=== PATIENT | male | born 1980 | race African-American/Black ===

== ENCOUNTER 2017-12-04 14:53 | Observation (INO) | payer SELFPAY ==
[~2017-12-04] VITALS: Ht 175.3 cm; Wt 93.0 kg
[~2017-12-04 14:53] MED LIST: CYCL-36 PO; IBUP800T23 PO; MEDR4PAK3 PO
[2017-12-04 15:11] VITALS: BP 150/97; PULSE 120; RESP 18; TEMP 97.9; O2SAT 98
[2017-12-04] MEDS ORDERED: SODIUM CHLOR 0.9% 1000 ML INJ 1,000 ML IV SCH (15:22)
--- NOTE | 2017-12-04 15:28 | PD ---
HPI Chief Complaint: GI Complaint Time Seen by Provider: 15:22 Travel History International Travel<30 days: No Contact w/Intl Traveler<30days: No Traveled to known affect area: No History of Present Illness HPI 37-year-old male presents for evaluation of rectal pain, chills and sweats, generalized weakness and constipation. Symptoms started 1.5 weeks ago. He assumed that he must have hemorrhoids. He has never had this problem before. He reports constipation secondary to rectal pain. He tried using Ex-Lax with no symptom improvement. He reports associated generalized fatigue as well as chills, sweats, particularly at night. Denies any nausea or vomiting. Denies any testicular scrotal pain. He has no other complaints at this time. [facility] Social History Alcohol Use: No Tobacco Use: Yes (2 CIGARS/DAY) Substance Use: No Allergies-Medications (Allergen,Severity, Reaction): Coded Allergies: No Known Allergies (Verified Allergy, Unknown, 12/04/17) Reported Meds & Prescriptions Reported Meds & Active Scripts Active No Active Prescriptions or Reported Medications Review of Systems Except as stated in HPI: all other systems reviewed are Neg Physical Exam Narrative GENERAL: Well-developed well-nourished male no acute distress. He is tachycardic in triage. SKIN: Warm and dry. HEAD: Atraumatic. Normocephalic. EYES: Pupils equal and round. No scleral icterus. No injection or drainage. ENT: No nasal bleeding or discharge. Mucous membranes pink and moist. NECK: Trachea midline. No JVD. CARDIOVASCULAR: Regular rate and rhythm. No murmur appreciated. RESPIRATORY: No accessory muscle use. Clear to auscultation. Breath sounds equal bilaterally. GASTROINTESTINAL: Abdomen soft, mild suprapubic tenderness. Rectal examination is significantly painful for the patient. There is no obvious external hemorrhoid or external palpable abscess. Brown stool noted. examination reveals descended testicles, nontender, nontender scrotum. No urethral discharge. MUSCULOSKELETAL: No obvious deformities. No clubbing. No cyanosis. No edema. NEUROLOGICAL: Awake and alert. No obvious cranial nerve deficits. Motor grossly within normal limits. Normal speech. Data Data Last Documented VS Vital Signs Date Time Temp Pulse Resp B/P (MAP) Pulse Ox O2 Delivery O2 Flow Rate FiO2 12/04/17 21:05 99.2 12/04/17 19:20 101 18 100 Room Air Orders Orders Complete Blood Count With Diff (12/04/17 15:22) Comprehensive Metabolic Panel (12/04/17:22) Lipase (12/04/17:) Urinalysis - C+S If Indicated (12/04/17:) Iv Access Insert/Monitor (12/04/17 15:22) Morphine Inj (Morphine Inj) (12/04/17 15:30) Ondansetron Inj (Zofran Inj) (12/04/17 15:30) Sodium Chlor 0.9% 1000 Ml Inj (Ns 1000 M (12/04/17 15:22) Ct Abd/Pel W Iv Contrast(Rout) (12/04/17:23) Fleets Enema PRN (12/04/17:23) Morphine Inj (Morphine Inj) (12/04/17 18:00) Iohexol 350 Inj (Omnipaque 350 Inj) (12/04/17 18:25) Ciprofloxacin 400 Mg Premix (Cipro 400 M (12/04/17 19:15) Metronidazole 500 Mg Inj (Flagyl 500 Mg (12/04/17 19:15) Acetaminophen 1000 Mg/100 Ml (Ofirmev 10 (12/04/17 20:00) Morphine Inj (Morphine Inj) (12/04/17 20:00) Consent (12/04/17 20:43) Admit Order (Ed Use Only) (12/04/17 22:55) Vital Signs (Adult) Q4H (12/04/17 22:55) Diet Npo (12/05/17 Breakfast) Activity Oob With Assistance (12/04/17 22:55) Notify Dr: Other (12/04/17 22:55) Labs Laboratory Tests Test 12/04/17 15:35 12/04/17 18:15 White Blood Count 9.2 TH/MM3 Red Blood Count 5.30 MIL/MM3 Hemoglobin 15.3 GM/DL Hematocrit 45.5 % Mean Corpuscular Volume 85.7 FL Mean Corpuscular Hemoglobin 28.9 PG Mean Corpuscular Hemoglobin Concent 33.8 % Red Cell Distribution Width 14.0 % Platelet Count 302 TH/MM3 Mean Platelet Volume 7.9 FL Neutrophils (%) (Auto) 71.3 % Lymphocytes (%) (Auto) 11.8 % Monocytes (%) (Auto) 16.4 % Eosinophils (%) (Auto) 0.1 % Basophils (%) (Auto) 0.4 % Neutrophils # (Auto) 6.6 TH/MM3 Lymphocytes # (Auto) 1.1 TH/MM3 Monocytes # (Auto) 1.5 TH/MM3 Eosinophils # (Auto) 0.0 TH/MM3 Basophils # (Auto) 0.0 TH/MM3 CBC Comment DIFF FINAL Differential Comment Blood Urea Nitrogen 11 MG/DL Creatinine 1.01 MG/DL Random Glucose 122 MG/DL Total Protein 8.1 GM/DL Albumin 3.5 GM/DL Calcium Level 9.6 MG/DL Alkaline Phosphatase 85 U/L Aspartate Amino Transf (AST/SGOT) 15 U/L Alanine Aminotransferase (ALT/SGPT) 17 U/L Total Bilirubin 0.4 MG/DL Sodium Level 141 MEQ/L Potassium Level 3.9 MEQ/L Chloride Level 105 MEQ/L Carbon Dioxide Level 27.7 MEQ/L Anion Gap 8 MEQ/L Estimat Glomerular Filtration Rate 100 ML/MIN Lipase 113 U/L Urine Color YELLOW Urine Turbidity CLEAR Urine pH 6.0 Urine Specific [place] 1.025 Urine Protein TRACE mg/dL Urine Glucose (UA) NEG mg/dL Urine Ketones NEG mg/dL Urine Occult Blood TRACE Urine Nitrite NEG Urine Bilirubin NEG Urine Urobilinogen 4.0 MG/DL Urine Leukocyte Esterase NEG Urine RBC 7 /hpf Urine WBC 1 /hpf Urine Squamous Epithelial Cells 1 /hpf Urine Mucus MANY /lpf Microscopic Urinalysis Comment CULT NOT INDICATED MDM Medical Decision Making Medical Screen Exam Complete: Yes Emergency Medical Condition: Yes Medical Record Reviewed: Yes Differential Diagnosis Anal fissure, constipation, rectal abscess, prostatitis Narrative Course Plan is for lab work, urinalysis, CT abdomen and pelvis with IV and rectal contrast. He will be given IV fluids, morphine and Zofran. 1754: Patient was reevaluated, still pain, additional morphine is been ordered. CBC is unremarkable. CMP is unremarkable. Urinalysis and CT abdomen and pelvis are pending. The patient is being signed out to the oncoming provider pending these results. Scripts No Active Prescriptions or Reported Meds Chandra Hsu December 04, 2017 15:28
[2017-12-04] MEDS ORDERED: ONDANSETRON HCL 4 MG/2 ML VIAL IVP ONE (15:30)
[2017-12-04] MEDS ORDERED: MORPHINE SULFATE 4 MG/ML INJ IV PUSH ONE ×3 (15:30→20:00)
[2017-12-04 15:48] LABS: AUTOMATED NEUTROPHIL # 6.6 TH/MM3 (1.8-7.7); BASOPHIL % 0.4 % (0.0-2.0); EOSINOPHIL % 0.1 % (0.0-4.0); HEMATOCRIT 45.5 % (39.0-51.0); HEMOGLOBIN 15.3 GM/DL (13.0-17.0); LYMPH % 11.8 % (9.0-44.0); LYMPHOCYTE # 1.1 TH/MM3 (1.0-4.8); MEAN CELL VOLUME 85.7 FL (80.0-100.0); MEAN CORPUSCULAR HEMOGLOBIN 28.9 PG (27.0-34.0); MEAN CORPUSCULAR HGB CONC 33.8 % (32.0-36.0); MEAN PLATELET VOLUME 7.9 FL (7.0-11.0); MONO % 16.4 % (0.0-8.0); MONOCYTE # 1.5 TH/MM3 (0-0.9); NEUT % 71.3 % (16.0-70.0); PLATELET COUNT 302 TH/MM3 (150-450); WHITE BLOOD COUNT 9.2 TH/MM3 (4.0-11.0)
[2017-12-04 16:13] LABS: ALBUMIN 3.5 GM/DL (3.4-5.0); ALKALINE PHOSPHATASE 85 U/L (45-117); ALT (GPT) 17 U/L (12-78); AST (GOT) 15 U/L (15-37); BICARBONATE 27.7 MEQ/L (21.0-32.0); BLOOD UREA NITROGEN 11 MG/DL (7-18); CALCIUM 9.6 MG/DL (8.5-10.1); CHLORIDE 105 MEQ/L (98-107); CREATININE 1.01 MG/DL (0.60-1.30); GLOMERULAR FILTRATION RATE 100 ML/MIN (>89); GLUCOSE,RANDOM 122 MG/DL (74-106); SODIUM (NA) 141 MEQ/L (136-145); TOTAL BILIRUBIN ADULT 0.4 MG/DL (0.2-1.0); TOTAL PROTEIN 8.1 GM/DL (6.4-8.2)
[2017-12-04] MEDS ORDERED: IOHEXOL 350 MG/ML 10 ML VIAL (for RAD DIAG) IVCONTRAST ONE (18:25)
[2017-12-04 18:30] LABS: BILIRUBIN, URINE NEG (NEG); BLOOD, URINE TRACE (NEG); GLUCOSE,URINE NEG (NEG); KETONE, URINE NEG (NEG); MUCUS URINE MANY /lpf (OCC); NITRITE,URINE NEG (NEG); SQUAMOUS EPITHELIAL CELL URINE 1 /hpf (0-5); URINE COLOR YELLOW (YELLW/STRAW); URINE LEUKOCYTE ESTERASE NEG (NEG)
--- NOTE | 2017-12-04 19:05 | RADRPT ---
EXAM DATE/TIME: 12/04/2017 18:24 [place] COMPARISON: No previous studies available for comparison. INDICATIONS : Constipation for two weeks. IV CONTRAST: 92 cc Omnipaque 350 (iohexol) IV ORAL CONTRAST: No oral contrast ingested. RADIATION DOSE: 11.70 CTDIvol (mGy) MEDICAL HISTORY : Hypertension. SURGICAL HISTORY : None. ENCOUNTER: Initial ACUITY: 3 weeks PAIN SCALE: 5/10 LOCATION: Bilateral abdomen TECHNIQUE: Volumetric scanning of the abdomen and pelvis was performed. Using automated exposure control and ad justment of the mA and/or kV according to patient size, radiation dose was kept as low as reasonably achievable to obtain optimal diagnostic quality images. DICOM format image data is available electro nically for review and comparison. FINDINGS: LOWER LUNGS: The visualized lower lungs are clear. LIVER: Homogeneous density without lesion. There is no dilation of the biliary tree. No calcified gallston es. SPLEEN: Normal size without lesion. PANCREAS: Within normal limits. KIDNEYS: Normal in size and shape. There is no mass, stone or hydronephrosis. ADRENAL GLANDS: Within normal limits. VASCULAR: There is no aortic aneurysm. BOWEL/MESENTERY: 3.8 x 2.0 cm peripherally enhancing fluid collection me perianal region posteriorly and to the left o f midline. Scattered colonic diverticula. No evidence of acute diverticulitis. No bowel dilatation. A ppendix within normal limits. No free air or free fluid. ABDOMINAL WALL: Within normal limits. RETROPERITONEUM: There is no lymphadenopathy. BLADDER: No wall thickening or mass. REPRODUCTIVE: Prostate calcifications. INGUINAL: There is no lymphadenopathy or hernia. MUSCULOSKELETAL: Within normal limits for patient age. CONCLUSION: 1. 3.8 cm perianal abscess. 2. No evidence of bowel obstruction. Medhat Borjas MD on December 04, 2017 at 18:58 Board Certified Radiologist. This report was verified electronically.
--- NOTE | 2017-12-04 19:14 | PD ---
Physical Exam Date Seen by Provider: December 04, 2017 Time Seen by Provider: 19:12 Narrative For full H&P please see previous providers note. Patient was signed out to me at change his shift. At that time a CT scan of the abdomen and pelvis with IV contrast was pending. Data Data Last Documented VS Vital Signs Date Time Temp Pulse Resp B/P (MAP) Pulse Ox O2 Delivery O2 Flow Rate FiO2 12/04/17 21:05 99.2 12/04/17 19:20 101 18 100 Room Air Orders Orders Complete Blood Count With Diff (12/04/17 15:22) Comprehensive Metabolic Panel (12/04/17:22) Lipase (12/04/17:22) Urinalysis - C+S If Indicated (12/04/17:) Iv Access Insert/Monitor (12/04/17:22) Morphine Inj (Morphine Inj) (12/04/17 15:30) Ondansetron Inj (Zofran Inj) (12/04/17 15:30) Sodium Chlor 0.9% 1000 Ml Inj (Ns 1000 M (12/04/17 15:22) Ct Abd/Pel W Iv Contrast(Rout) (12/04/17 15:23) Fleets Enema PRN (12/04/17 15:23) Morphine Inj (Morphine Inj) (12/04/17 18:00) Iohexol 350 Inj (Omnipaque 350 Inj) (12/04/17 18:25) Ciprofloxacin 400 Mg Premix (Cipro 400 M (12/04/17 19:15) Metronidazole 500 Mg Inj (Flagyl 500 Mg (12/04/17 19:15) Acetaminophen 1000 Mg/100 Ml (Ofirmev 10 (12/04/17 20:00) Morphine Inj (Morphine Inj) (12/04/17 20:00) Consent (12/04/17 20:43) Admit Order (Ed Use Only) (12/04/17 22:55) Vital Signs (Adult) Q4H (12/04/17 22:55) Diet Npo (12/05/17 Breakfast) Activity Oob With Assistance (12/04/17 22:55) Notify Dr: Other (12/04/17 22:55) Labs Laboratory Tests Test 12/04/17 15:35 5/5/18 18:15 White Blood Count 9.2 TH/MM3 Red Blood Count 5.30 MIL/MM3 Hemoglobin 15.3 GM/DL Hematocrit 45.5 % Mean Corpuscular Volume 85.7 FL Mean Corpuscular Hemoglobin 28.9 PG Mean Corpuscular Hemoglobin Concent 33.8 % Red Cell Distribution Width 14.0 % Platelet Count 302 TH/MM3 Mean Platelet Volume 7.9 FL Neutrophils (%) (Auto) 71.3 % Lymphocytes (%) (Auto) 11.8 % Monocytes (%) (Auto) 16.4 % Eosinophils (%) (Auto) 0.1 % Basophils (%) (Auto) 0.4 % Neutrophils # (Auto) 6.6 TH/MM3 Lymphocytes # (Auto) 1.1 TH/MM3 Monocytes # (Auto) 1.5 TH/MM3 Eosinophils # (Auto) 0.0 TH/MM3 Basophils # (Auto) 0.0 TH/MM3 CBC Comment DIFF FINAL Differential Comment Blood Urea Nitrogen 11 MG/DL Creatinine 1.01 MG/DL Random Glucose 122 MG/DL Total Protein 8.1 GM/DL Albumin 3.5 GM/DL Calcium Level 9.6 MG/DL Alkaline Phosphatase 85 U/L Aspartate Amino Transf (AST/SGOT) 15 U/L Alanine Aminotransferase (ALT/SGPT) 17 U/L Total Bilirubin 0.4 MG/DL Sodium Level 141 MEQ/L Potassium Level 3.9 MEQ/L Chloride Level 105 MEQ/L Carbon Dioxide Level 27.7 MEQ/L Anion Gap 8 MEQ/L Estimat Glomerular Filtration Rate 100 ML/MIN Lipase 113 U/L Urine Color YELLOW Urine Turbidity CLEAR Urine pH 6.0 Urine Specific [place] 1.025 Urine Protein TRACE mg/dL Urine Glucose (UA) NEG mg/dL Urine Ketones NEG mg/dL Urine Occult Blood TRACE Urine Nitrite NEG Urine Bilirubin NEG Urine Urobilinogen 4.0 MG/DL Urine Leukocyte Esterase NEG Urine RBC 7 /hpf Urine WBC 1 /hpf Urine Squamous Epithelial Cells 1 /hpf Urine Mucus MANY /lpf Microscopic Urinalysis Comment CULT NOT INDICATED [facility] Medical Record Reviewed: Yes Supervised Visit with JANET: Yes Interpretation(s) Last Impressions Abdomen/Pelvis CT 12/04/17 1523 Signed Impressions: Service Date/Time: Monday, December 04, 2017 18:24 - CONCLUSION: 1. 3.8 cm perianal abscess. 2. No evidence of bowel obstruction. Medhat Borjas MD Laboratory Tests Test 12/04/17 15:35 12/04/17 18:15 White Blood Count 9.2 TH/MM3 Red Blood Count 5.30 MIL/MM3 Hemoglobin 15.3 GM/DL Hematocrit 45.5 % Mean Corpuscular Volume 85.7 FL Mean Corpuscular Hemoglobin 28.9 PG Mean Corpuscular Hemoglobin Concent 33.8 % Red Cell Distribution Width 14.0 % Platelet Count 302 TH/MM3 Mean Platelet Volume 7.9 FL Neutrophils (%) (Auto) 71.3 % Lymphocytes (%) (Auto) 11.8 % Monocytes (%) (Auto) 16.4 % Eosinophils (%) (Auto) 0.1 % Basophils (%) (Auto) 0.4 % Neutrophils # (Auto) 6.6 TH/MM3 Lymphocytes # (Auto) 1.1 TH/MM3 Monocytes # (Auto) 1.5 TH/MM3 Eosinophils # (Auto) 0.0 TH/MM3 Basophils # (Auto) 0.0 TH/MM3 CBC Comment DIFF FINAL Differential Comment Blood Urea Nitrogen 11 MG/DL Creatinine 1.01 MG/DL Random Glucose 122 MG/DL Total Protein 8.1 GM/DL Albumin 3.5 GM/DL Calcium Level 9.6 MG/DL Alkaline Phosphatase 85 U/L Aspartate Amino Transf (AST/SGOT) 15 U/L Alanine Aminotransferase (ALT/SGPT) 17 U/L Total Bilirubin 0.4 MG/DL Sodium Level 141 MEQ/L Potassium Level 3.9 MEQ/L Chloride Level 105 MEQ/L Carbon Dioxide Level 27.7 MEQ/L Anion Gap 8 MEQ/L Estimat Glomerular Filtration Rate 100 ML/MIN Lipase 113 U/L Urine Color YELLOW Urine Turbidity CLEAR Urine pH 6.0 Urine Specific [place] 1.025 Urine Protein TRACE mg/dL Urine Glucose (UA) NEG mg/dL Urine Ketones NEG mg/dL Urine Occult Blood TRACE Urine Nitrite NEG Urine Bilirubin NEG Urine Urobilinogen 4.0 MG/DL Urine Leukocyte Esterase NEG Urine RBC 7 /hpf Urine WBC 1 /hpf Urine Squamous Epithelial Cells 1 /hpf Urine Mucus MANY /lpf Microscopic Urinalysis Comment CULT NOT INDICATED Vital Signs Date Time Temp Pulse Resp B/P (MAP) Pulse Ox O2 Delivery O2 Flow Rate FiO2 12/04/17 15:11 97.9 120 18 150/97 (114) 98 Differential Diagnosis Anal fissure versus constipation versus perirectal abscess versus other Narrative Course Patient is a 37-year-old male presenting to the emergency department for evaluation of 2 weeks of significant rectal pain. Patient reports subjective fevers and chills. He also reports feeling weak. Workup was initiated by previous provider. I assumed care of this patient change his shift. CT scan of the abdomen and pelvis with IV contrast shows a 3.8 centimeter perianal abscess. There is no evidence of bowel obstruction. No evidence of acute diverticulitis. No bowel dilatation. Appendix is within normal limits. Labs are unremarkable. Colorectal surgeon paged. Atilio and Flagyl ordered. Patient 's pain is currently controlled he is resting comfortably. Patient was advised on findings. Dr. Rick return page, he stated that he would come evaluate patient in the emergency department. Patient will be given an additional dose of pain medication now. Vital signs are reassessed, he is currently with a low-grade temp of 100. IV acetaminophen ordered. Patient will be kept n.p.o. at this time. Patient will be admitted to observation under Dr. Rick service. Surgery has been delayed until the morning. Diagnosis Primary Impression: Perianal abscess Admitting Information Admitting Physician Requests: Observation Scripts No Active Prescriptions or Reported Meds Condition: Stable Radha Castellano December 04, 2017 19:14
[2017-12-04] MEDS ORDERED: CIPROFLOXACIN 400 MG PREMIX 200 ML IV ONE (19:15)
[2017-12-04] MEDS ORDERED: metroNIDAZOLE 500 MG INJ 100 ML IV ONE (19:15)
[2017-12-04 19:20] VITALS: BP 143/91; PULSE 101; RESP 18; TEMP 100; O2SAT 100
[2017-12-04] MEDS ORDERED: ACETAMINOPHEN 1000 MG/100 ML 100 ML IV ONE (20:00)
[2017-12-04 21:05] VITALS: TEMP 99.2
--- NOTE | 2017-12-04 22:11 | MB ---
cc: Denys Rick MD, Andrew H MD DATE: 12/04/2017 REASON FOR CONSULTATION: Rectal pain, probable anorectal abscess. HISTORY OF PRESENT ILLNESS: Mr. Borjas is a 37-year-old male who had been complaining of increasing pain now over the last 7-14 days. He says he has had trouble at work standing and sitting and has more trouble going to the bathroom with constipation and has had to strain with extreme pain on defecation. Denies any fever but says he feels kind of cold and sweaty at times. Denies any nausea or vomiting, but has cut back his diet. Denies any significant rectal bleeding or melena. No prior anorectal problems. Did try some laxatives with no significant bowel movements. The patient was seen in the emergency room, evaluated and found to have a perirectal abscess and the undersigned was consulted for further treatment. PAST MEDICAL/SURGICAL HISTORY: Please see the admitting history and physical for additional past medical and surgical history. PERTINENT PHYSICAL EXAMINATION: GENERAL: A very pleasant, muscular male in some discomfort. HEENT: Remarkable for dry and somewhat warm skin. Nonicteric sclerae. NECK: Supple without gross adenopathy. LUNGS: Relatively clear, symmetrical expanding. HEART: Had a regular rhythm. ABDOMEN: Very muscular and soft, not distended. No rebound or guarding or any masses noted. RECTAL: Anal Inspection reveals induration and thickening in the left posterior quadrant very tender to the touch and hard. No fluctuance. Very benign hemorrhoid tissue elsewhere. Good anal symmetry. EXTREMITIES: No cyanosis or clubbing and no pedal edema. LABORATORY DATA: White count was 9.2, hemoglobin 15.3. Electrolytes pretty normal. IMPRESSION: A 37-year-old male with a 2-week history of increasing rectal pain. He has a fairly obvious perirectal abscess on physical examination. I recommended we give him some IV sedation and examine the rectum under anesthesia draining the abscess and possibly doing a fistulotomy, if indeed an internal fistula is found. Risks, benefits and alternatives were discussed in great detail with both the patient and his family and we will proceed with surgery as soon as the operative room gives us some operating time. MD SIMA Fitzpatrick/SA , 09:28 PM , 10:10 PM
[2017-12-04 23:55] VITALS: BP 140/85; PULSE 105; RESP 16; TEMP 98.6; O2SAT 97
[2017-12-05] MEDS ORDERED: HYDROmorphone HCL PF 2 MG/ML VIAL IV ONE (00:45)
[2017-12-05 03:48] VITALS: BP 138/86; PULSE 94; RESP 18; TEMP 98.2; O2SAT 97
[2017-12-05] MEDS: HYDROmorphone HCL PF 2 MG/ML VIAL IV PRN ×2 (04:10→08:26)
[2017-12-05 07:56] VITALS: BP 142/98; PULSE 100; RESP 20; TEMP 97.9; O2SAT 98
[2017-12-05] MEDS ORDERED: LACTATED RINGER'S 1000 ML INJ 1,000 ML ONE (09:24)
[2017-12-05] MEDS ORDERED: LIDOCAINE 1%/EPINEPHrine 1:100,000 SOLN 30 ML VIAL ONE (09:32)
[2017-12-05] MEDS ORDERED: BUPIVACAINE/EPINEPHRINE 0.5% PF 10 ML VIAL ONE (09:32)
[2017-12-05] MEDS ORDERED: BACITRACIN TOP OINT 15 GM TUBE ONE (09:32)
[2017-12-05] MEDS ORDERED: *morphine SULFATE 4 MG/ML PERIprocedure ONLY ONE ×2 (09:59→10:07)
[2017-12-05] MEDS ORDERED: MIDAZOLAM HCL 2 MG/2 ML VIAL ONE ×2 (10:00→10:01)
[2017-12-05] MEDS ORDERED: oxyCODONE/ACETAMINOPHEN 5 MG/325 MG TAB PO PRN (10:00)
[2017-12-05 10:15] VITALS: BP 150/90; PULSE 101; RESP 20; TEMP 99.4; O2SAT 99
[2017-12-05] MEDS ORDERED: DO NOT ADM ANY ANTICOAGULANT DRUGS PRN (11:15)
[2017-12-05] MEDS ORDERED: PROPOFOL 200 MG/20 ML AMP IV ONE (12:12)
[2017-12-05] MEDS ORDERED: LIDOCAINE HCL 1% PF 5 ML SYRINGE OTHER ONE (12:12)
[2017-12-05] MEDS ORDERED: LABETALOL HCL 100 MG/20 ML VIAL IV ONE (12:12)
--- NOTE | 2017-12-07 09:26 | MP ---
cc: Denys Rick MD DATE OF OPERATION: 12/05/2017 PREOPERATIVE DIAGNOSIS: Perirectal abscess, ischiorectal abscess. PROCEDURE PERFORMED: Exam under anesthesia with incision and drainage of ischiorectal abscess. POSTOPERATIVE DIAGNOSIS: Perirectal abscess, ischiorectal abscess. SURGEON: Denys Rick MD DESCRIPTION OF PROCEDURE: The patient was placed in the left lateral decubitus position. After adequate anesthesia sedation, his buttocks were taped apart, prepped with Betadine solution and draped in the usual sterile fashion. Anal canal was dilated and a half rebolledo retractor inserted. Examination revealed induration and thickening along the left posterior quadrant. Local anesthesia was obtained by injection of 1% Xylocaine, 0.5% Marcaine with epinephrine. A radial incision was made over the indurated area, entering a cavity full of purulent fluid. The cavity was unroofed and probed, which extended down to the dentate line. The cavity was opened along the extent of its length and irrigated copiously. Hemostasis achieved with electrocautery. The skin around the exit of the cavity was debrided for more adequate drainage. The cavity was packed with a Kerlix dressing and a large fluff dressing externally. The patient tolerated the procedure quite well and was brought to the recovery room in stable condition. Sponge and needle counts were correct at the end of the procedure. Denys Rick MD [facility]/ , 10:35 PM , 11:17 PM
== END 2017-12-05 12:13 | disposition home or self-care (01) ==
LOC: NEPD 14:53 → UNDOADMOB 22:57 → NEDA 22:57 → NEPHCDU 23:32 → N07B 12-05 09:23 → NEPHCDU 12-05 09:23 → NEDA 12-05 10:48 → N07B 12-05 10:48 → NEPHCDU 12-05 10:50 → NEDA 12-05 10:50 → UNDODISOB 12-05 12:13
PROVIDERS: ADMIT Colon & Rectal Surgery; ATTEND Colon & Rectal Surgery
DX: K61.2 Anorectal abscess (principal); K62.89 Other specified diseases of anus and rectum; R68.83 Chills (without fever); K59.00 Constipation, unspecified; R53.1 Weakness; F17.200 Nicotine dependence, unspecified, uncomplicated; K61.3 Ischiorectal abscess
CPT/HCPCS: 00902; 46040; 74177; 80053; 81001; 83690; 85025; 96361; 96365; 96367; 96375; 96376; 99285; G0378; J0131; J0744; J1170; J2250; J2270; J2405; J3010; J7030; J7120; Q9967

== ENCOUNTER 2017-12-11 20:31 | Emergency (ER) | payer SELFPAY ==
[~2017-12-11] VITALS: Ht 175.3 cm; Wt 93.0 kg
[2017-12-11 20:49] VITALS: BP 154/97; PULSE 113; RESP 18; TEMP 99.4; O2SAT 99
[2017-12-11] MEDS ORDERED: oxyCODONE/ACETAMINOPHEN 10 MG/325 MG TAB PO ONE (21:15)
--- NOTE | 2017-12-11 21:17 | PD ---
HPI Chief Complaint: Pain: Acute or Chronic Time Seen by Provider: 20:57 Travel History International Travel<30 days: No Contact w/Intl Traveler<30days: No Traveled to known affect area: No History of Present Illness HPI 37-year-old -[place] male presents emergency department status post recent I&D surgery of a perirectal abscess on December 04, performed by Dr. Rick. Patient is here as he is having continued drainage and pain. He states the packing is still in place from the original surgery 7 days ago. He was given some pain medication after the procedure but no antibiotics. He has been moving his bowels although with some discomfort. He states part of the packing started to come out today after performing a sitz bath as he was instructed by Dr. Rick. He is concerned that it will all come out or questioning whether it should all come out now anyway. He and his both state they did not have a follow-up scheduled with Dr. Rick. He states the pain is 8 out of 10. He has not had fever, chills, or other symptoms. Patient states malodorous drainage has improved. He has no known drug allergies. PFSH Past Medical History Asthma: No Blood Disorders: No Heart Rhythm Problems: No Cancer: No Cardiovascular Problems: No High Cholesterol: Yes Chemotherapy: No Chest Pain: No Congestive Heart Failure: No COPD: No Diabetes: No Diminished Hearing: No Endocrine: No Gastrointestinal Disorders: Yes (GERD ACID REFLUX) GERD: Yes Genitourinary: No Hypertension: Yes Immune Disorder: No Neurologic: No Psychiatric: No Reproductive: No Respiratory: No Radiation Therapy: No Sleep Apnea: No Thyroid Disease: No Tetanus Vaccination: Unknown Influenza Vaccination: No Past Surgical History Other Surgery: Yes (anal fistual repair) Social History Alcohol Use: No Tobacco Use: Yes (2 CIGARS/DAY) Substance Use: Yes (MARIJUANA ) Allergies-Medications (Allergen,Severity, Reaction): Coded Allergies: No Known Allergies (Verified Allergy, Unknown, 12/11/17) Reported Meds & Prescriptions Reported Meds & Active Scripts Active No Active Prescriptions or Reported Medications Review of Systems Except as stated in HPI: all other systems reviewed are Neg General / Constitutional: No: Fever Eyes: No: Visual changes HENT: No: Headaches Cardiovascular: No: Chest Pain or Discomfort Respiratory: No: Shortness of Breath Gastrointestinal: No: Abdominal Pain Genitourinary: No: Dysuria Musculoskeletal: No: Pain Skin: Positive Lesions (See history of present illness per), No Rash Neurologic: No: Weakness Psychiatric: No: Depression Endocrine: No: Polydipsia Hematologic/Lymphatic: No: Easy Bruising Physical Exam Narrative GENERAL: Patient appears in mild to moderate distress. SKIN: Warm and dry. Normal color. Normal turgor. Patient has an apparent well -healing perirectal cyst at the 11 o'clock position with malodorous packing in place. There is no sign of local erythema or induration. Drainage is minimal HEAD: Atraumatic. Normocephalic. EYES: Pupils equal and round. No scleral icterus. No injection or drainage. ENT: No nasal bleeding or discharge. Mucous membranes pink and moist. Pharynx is clear. Airways patent NECK: Trachea midline. Supple nontender CARDIOVASCULAR: Regular rate and rhythm. RESPIRATORY: No accessory muscle use. Clear to auscultation. Breath sounds equal bilaterally. GASTROINTESTINAL: Abdomen soft, non-tender, nondistended. Hepatic and splenic margins not palpable. MUSCULOSKELETAL: Extremities without clubbing, cyanosis, or edema. No obvious deformities. NEUROLOGICAL: Awake and alert. No obvious cranial nerve deficits. Motor grossly within normal limits. Five out of 5 muscle strength in the arms and legs. Normal speech. PSYCHIATRIC: Appropriate mood and affect; insight and judgment normal. Data Data Last Documented VS Vital Signs Date Time Temp Pulse Resp B/P (MAP) Pulse Ox O2 Delivery O2 Flow Rate FiO2 12/11/17 20:49 99.4 113 18 154/97 (116) 99 Orders Orders Oxycodone-Acetamin 10-325 Mg (Percocet 1 (12/11/17 21:15) [facility] Medical Decision Making Medical Screen Exam Complete: Yes Emergency Medical Condition: Yes Medical Record Reviewed: Yes Differential Diagnosis Status post I&D of perirectal abscess. Wound check. Need for packing removal. Narrative Course Patient is medically stable at time of exam. Packing is removed with moderate discomfort at the patient, however he tolerated it well. Patient is given Percocet 10/325 p.o. for pain Further packing is not warranted. Patient is to continue warm baths as previously prescribed by Dr. Rick. Patient is given prescription for Percocet 5/325 one every 6 hours as needed pain #12 Patient is recommended to follow-up with his primary care physician Dr. Rick' s office as needed. Work note was given for the next 3 days. Diagnosis Primary Impression: Encounter for abscess packing removal Additional Impression: S/P lm-rectal abscess repair, follow-up exam Referrals: Denys Rick MD Primary Care Physician Patient Instructions: General Instructions Departure Forms: Work Release Enter return to work date: December 14, 2017 Additional Instructions: Packing is removed with moderate discomfort at the patient, however he tolerated it well. Patient is given Percocet 10/325 p.o. for pain Further packing is not warranted. Patient is to continue warm baths as previously prescribed by Dr. Rick. Patient is given prescription for Percocet 5/325 one every 6 hours as needed pain #12 Patient is recommended to follow-up with his primary care physician Dr. Rick' s office as needed. Work note was given for the next 3 days. Med/Other Pt SpecificInfo: Prescription(s) given, Wound Care Scripts No Active Prescriptions or Reported Meds Disposition: 01 DISCHARGE HOME Condition: Stable Denys Joe December 11, 2017 21:17
[2017-12-11] MEDS ORDERED: PERC5TAB12 PO (21:18)
== END 2017-12-11 22:13 | disposition home or self-care (01) ==
LOC: NEPC 20:31
DX: Z48.00 Encounter for change or removal of nonsurgical wound dressing (principal); K61.1 Rectal abscess
CPT/HCPCS: 99281